=== PATIENT | male | born 1960 | race Caucasian/White ===

== ENCOUNTER 2017-03-10 12:15 | Inpatient (IN) | payer OTHER ==
--- NOTE | 2017-03-10 12:43 | Emergency Department Report ---
Chief Complaint: Neuro Symptoms/Deficit Stated Complaint: stroke like sysmptoms Time Seen by Provider: 03/10/17 12:35 - HPI History of Present Illness: Patient here with his family and reports that they noticed yesterday in the morning that he was drooling. Patient and brought to the emergency room today and family report right-sided droop into his face weakness in his right shoulder. Also reports patient right ear pain and dizziness. Pain to right ears for her to 10. Patient does not have any history except for history of TB in the past which he was treated for. He is also complaining of numbness to his right cheek. Denies any headache, or nausea or vomiting. Denies any fever or chills. Denies any neck pain or stiffness. - ROS Review of Systems: All systems are negative unless stated in HPI above - Exam Vital Signs: Vital Signs 03/10/17 12:26 Temperature 95 F L Pulse Rate 95 H Respiratory 16 Rate Blood Pressure 137/98 O2 Sat by Pulse 97 Oximetry Physical Exam: Gen.: This is a 56-year-old male well-nourished well-developed. Cardiovascular: S1, S2. Regular rate rhythm. Blood pressure is 137/98 Mini- neurological: Patient with right-sided droop in a face, he is able to ambulate without any difficulties. GCS of 15 and alert and oriented 3. MSE screening note: Focused history and physical exam performed. Due to findings the following was ordered: ED Medical Decision Making - Medical Decision Making MDM: Patient screened by provider in triage area. Appropriate protocol initiated and patient to be seen in main ED by ED Disposition for MSE Condition: Stable
[2017-03-10 13:13] LABS: Basophils % (Auto) 0.5 % (0.0-1.8); Eosinophils % (Auto) 2.9 % (0.0-4.3); Hemoglobin 14.8 gm/dl (11.8-15.2); Mean Corpuscular HGB Conc 33 % (32-34); Mean Corpuscular Hemoglobin 31 pg (28-32); Mean Corpuscular Volume 93 fl (84-94); Platelet Count 168 K/mm3 (140-440); Red Blood Count 4.85 M/mm3 (3.65-5.03); Red Cell Distribution Width 13.5 % (13.2-15.2); White Blood Count 4.1 K/mm3 (4.5-11.0)
[2017-03-10 13:22] LABS: INR 0.93 (0.87-1.13)
[2017-03-10 13:23] LABS: Partial Thromboplastin Time 33.3 Sec. (24.2-36.6)
--- NOTE | 2017-03-10 13:24 | Emergency Department Report ---
ED Neuro Deficit HPI - General Chief Complaint: Neuro Symptoms/Deficit Stated Complaint: stroke like sysmptoms Time Seen by Provider: 03/10/17 12:40 Source: patient Mode of arrival: Ambulatory Limitations: No Limitations - History of Present Illness Initial Comments: 56-year-old male that started having a headache and right ear pain yesterday. Son noticed that he had a facial droop on the right side. Patient also complained of some weakness and dizziness. Denies fevers chills nausea vomiting. No history of strep in the past. -: Sudden Location: right face Presenting Symptoms: Present: Facial Droop/Numbness. Absent: Altered Mental Status Place: home Severity: mild Quality: weak Improves With: none Worsens With: none Associated Symptoms: other (dizziness). denies: confusion, chest pain, cough, diaphoresis, fever/chills, headaches, loss of appetite, malise, nausea/vomiting , vertigo - Related Data Home Medications: Home Medications Medication Instructions Recorded Confirmed Last Taken No Known Home Medications [No 04/23/13 04/23/13 Unknown Reported Home Medications] Allergies/Adverse Reactions: Allergies Allergy/AdvReac Type Severity Reaction Status Date / Time No Known Allergies Allergy Unverified 04/23/13 12:42 ED Review of Systems ROS: Stated complaint: stroke like sysmptoms Other details as noted in HPI Comment: All other systems reviewed and negative Eyes: denies: eye pain, eye discharge, vision change ENT: denies: ear pain, throat pain Respiratory: denies: cough, shortness of breath, wheezing Cardiovascular: denies: chest pain, palpitations Endocrine: no symptoms reported Gastrointestinal: denies: abdominal pain, nausea, diarrhea Genitourinary: denies: urgency, dysuria Musculoskeletal: denies: back pain, joint swelling, arthralgia Skin: denies: rash, lesions Neurological: denies: headache, weakness, paresthesias Psychiatric: denies: anxiety, depression Hematological/Lymphatic: denies: easy bleeding, easy bruising ED Past Medical Hx - Past Medical History Hx Tuberculosis: (POSSIBLE TB NOW) - Surgical History Additional Surgical History: bowel surgery 2007 - Family History Family history: no significant - Social History Smoking Status: Current Every Day Smoker Substance Use Type: None - Medications Home Medications: Home Medications Medication Instructions Recorded Confirmed Last Taken Type No Known Home Medications [No 04/23/13 04/23/13 Unknown History Reported Home Medications] ED Neuro Physical Exam - General Limitations: No Limitations General appearance: alert, in no apparent distress Suspected Stroke: No - Head Head exam: Present: atraumatic, normocephalic - Eye Eye exam: Present: normal appearance, other (slow blinking on right) - ENT ENT exam: Present: mucous membranes moist - Neck Neck exam: Present: normal inspection - Respiratory Respiratory exam: Present: normal lung sounds bilaterally. Absent: respiratory distress - Cardiovascular Cardiovascular Exam: Present: regular rate, normal rhythm. Absent: systolic murmur, diastolic murmur, rubs, gallop - GI/Abdominal GI/Abdominal exam: Present: soft, normal bowel sounds. Absent: distended, tenderness - Rectal Rectal exam: Present: deferred - Extremities Exam Extremities exam: Present: normal inspection - Back Exam Back exam: Present: normal inspection - Neurological Exam Neurological exam: Present: alert, oriented X3, CN II-XII intact (minor facial droop on the right), normal gait. Absent: motor sensory deficit - NIHSS Assessment Interval: Baseline 1a. Level of Consciousness: alert 1b. LOC Questions: answers correctly 1c. LOC Commands: performs tasks correctly 2. Best Gaze: normal 3. Visual: no visual loss 4. Facial Palsy: minor paralysis 5b. Motor Arm Right: no drift 5a. Motor Arm Left: no drift 6a. Motor Leg Left: no drift 6b. Motor Leg Right: no drift 7. Limb Ataxia: absent 8. Sensory: normal 9. Best Language: no aphasia 10. Dysarthria: normal 11. Extinction/Inattention: no abnormality Total Score: 1 Stroke Severity: Minor Stroke - Psychiatric Psychiatric exam: Present: normal affect, normal mood - Skin Skin exam: Present: warm, dry, intact, normal color. Absent: rash ED Course Vital Signs 03/10/17 12:26 Temperature 95 F L Pulse Rate 95 H Respiratory 16 Rate Blood Pressure 137/98 O2 Sat by Pulse 97 Oximetry - Lab Data Result diagrams: 03/10/17 12:41 03/10/17 12:41 Lab Results 03/10/17 03/10/17 03/10/17 Range/Units 12:41 12:41 12:41 WBC 4.1 L (4.5-11.0) K/mm3 RBC 4.85 (3.65-5.03) M/mm3 Hgb 14.8 (11.8-15.2) gm/dl Hct 45.0 (35.5-45.6) % MCV 93 (84-94) fl MCH 31 (28-32) pg MCHC 33 (32-34) % RDW 13.5 (13.2-15.2) % Plt Count 168 (140-440) K/mm3 Lymph % (Auto) 44.3 H (13.4-35.0) % [place] % (Auto) 4.0 (0.0-7.3) % Eos % (Auto) 2.9 (0.0-4.3) % Baso % (Auto) 0.5 (0.0-1.8) % Lymph # 1.8 (1.2-5.4) K/mm3 [place] # 0.2 (0.0-0.8) K/mm3 Eos # 0.1 (0.0-0.4) K/mm3 Baso # 0.0 (0.0-0.1) K/mm3 Seg Neutrophils % 48.3 (40.0-70.0) % Seg Neutrophils # 2.0 (1.8-7.7) K/mm3 PT 12.9 (12.2-14.9) Sec. INR 0.93 (0.87-1.13) APTT 33.3 (24.2-36.6) Sec. Thrombin Time (15.1-19.6) Sec. Sodium 142 (137-145) mmol/L Potassium 3.9 (3.6-5.0) mmol/L Chloride 101.8 (98-107) mmol/L Carbon Dioxide 27 (22-30) mmol/L Anion Gap 17 mmol/L BUN 10 (9-20) mg/dL Creatinine 0.6 L (0.8-1.5) mg/dL Estimated GFR > 60 ml/min BUN/Creatinine Ratio 17 % Glucose 107 H (75-100) mg/dL Calcium 9.0 (8.4-10.2) mg/dL Troponin T < 0.010 (0.00-0.029) ng/mL 03/10/17 Range/Units 12:41 WBC (4.5-11.0) K/mm3 RBC (3.65-5.03) M/mm3 Hgb (11.8-15.2) gm/dl Hct (35.5-45.6) % MCV (84-94) fl MCH (28-32) pg MCHC (32-34) % RDW (13.2-15.2) % Plt Count (140-440) K/mm3 Lymph % (Auto) (13.4-35.0) % [place] % (Auto) (0.0-7.3) % Eos % (Auto) (0.0-4.3) % Baso % (Auto) (0.0-1.8) % Lymph # (1.2-5.4) K/mm3 [place] # (0.0-0.8) K/mm3 Eos # (0.0-0.4) K/mm3 Baso # (0.0-0.1) K/mm3 Seg Neutrophils % (40.0-70.0) % Seg Neutrophils # (1.8-7.7) K/mm3 PT (12.2-14.9) Sec. INR (0.87-1.13) APTT (24.2-36.6) Sec. Thrombin Time 16.5 (15.1-19.6) Sec. Sodium (137-145) mmol/L Potassium (3.6-5.0) mmol/L Chloride (98-107) mmol/L Carbon Dioxide (22-30) mmol/L Anion Gap mmol/L BUN (9-20) mg/dL Creatinine (0.8-1.5) mg/dL Estimated GFR ml/min BUN/Creatinine Ratio % Glucose (75-100) mg/dL Calcium (8.4-10.2) mg/dL Troponin T (0.00-0.029) ng/mL - Medical Decision Making 56-year-old male who presents here with right-sided facial droop since yesterday. He also some right ear pain and dizziness. He denies fevers chills nausea vomiting. States he has had some weakness on the right side. 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 Plan to treat with Valtrex and prednisone but will obtain CT and MRI. Head CT negative. Plan admit patient for further workup with MRI. Portions of this chart were dictated with dictation software. There may be dictation errors contained within this note. - Thrombolytic Inclusion/Exclusion Thrombolytic Exclusion Criteria: Symptom Onset > 3 Hours Critical care attestation.: If time is entered above; I have spent that time in minutes in the direct care of this critically ill patient, excluding procedure time. ED Disposition Clinical Impression: Facial droop, Headache Disposition: OP ADMIT IP TO THIS HOSP Is pt being admited?: Yes Condition: Stable
[2017-03-10 13:29] LABS: Anion Gap 17 mmol/L; BUN/Creatinine Ratio 17; Blood Urea Nitrogen 10 mg/dL (9-20); Carbon Dioxide 27 mmol/L (22-30); Chloride 101.8 mmol/L (98-107); Glucose 107 mg/dL (75-100); Potassium 3.9 mmol/L (3.6-5.0); Sodium 142 mmol/L (137-145)
--- NOTE | 2017-03-10 13:54 | Cat Scan Report ---
CT HEAD WITHOUT CONTRAST: HISTORY: Facial droop, right sided weakness. Serial contiguous axial images were obtained through the cranium. Intravenous contrast material was not administered. The ventricles are normal in size and appearance. There is no mass effect or midline shift. No areas of abnormally increased or decreased attenuation are seen. No mass lesion is seen. There is partial opacification and hyperostosis of the right mastoid air cells. The left mastoid air cells and visualized portions of the sinuses are normal. IMPRESSION: No acute intracranial process.
[2017-03-10] MEDS ORDERED: DELTASONE PO ONE (14:54)
[2017-03-10] MEDS ORDERED: VALTREX PO ONE (15:54)
--- NOTE | 2017-03-10 16:23 | History and Physical Report ---
History of Present Illness Date of examination: 03/10/17 Date of admission: 03/10/17 14:56 Chief complaint: CC:Rt Facial droop 1 Day History of present illness: History of Present Illness 56-year-old male that started having a headache and right ear pain yesterday. Son noticed that he had a facial droop on the right side. Patient also complained of some weakness and dizziness. Denies fevers chills nausea vomiting. No history of strep in the past.No exacerbating factors and relieving factors. No significant PMH - Past Medical History Hx Tuberculosis: (POSSIBLE TB in past) - Surgical History Additional Surgical History: bowel surgery 2007 - Family History Family history: no significant - Social History Smoking Status: Current Every Day Smoker Substance Use Type: None - Medications Home Medications: Home Medications Medication Instructions Recorded Confirmed Last Taken Type No Known Home Medications [No 04/23/13 04/23/13 Unknown History Reported Home Medications] Review of Systems Stated complaint: stroke like sysmptoms Other details as noted in HPI Comment: All other systems reviewed and negative Eyes: denies: eye pain, eye discharge, vision change ENT: denies: ear pain, throat pain Respiratory: denies: cough, shortness of breath, wheezing Cardiovascular: denies: chest pain, palpitations Endocrine: no symptoms reported Gastrointestinal: denies: abdominal pain, nausea, diarrhea Genitourinary: denies: urgency, dysuria Musculoskeletal: denies: back pain, joint swelling, arthralgia Skin: denies: rash, lesions Neurological: denies: headache, weakness, paresthesias Psychiatric: denies: anxiety, depression Hematological/Lymphatic: denies: easy bleeding, easy bruising Medications and Allergies Allergies Allergy/AdvReac Type Severity Reaction Status Date / Time No Known Allergies Allergy Unverified 04/23/13 12:42 Home Medications Medication Instructions Recorded Confirmed Last Taken Type No Known Home Medications [No 04/23/13 03/10/17 Unknown History Reported Home Medications] Review of Systems All systems: negative Exam - Constitutional Vitals: Temp Pulse Resp BP Pulse Ox 95 F L 79 19 135/95 99 03/10/17 12:26 03/10/17 15:30 03/10/17 15:30 03/10/17 15:30 03/10/17 15:30 General appearance: Present: no acute distress, well-nourished - EENT Eyes: Present: PERRL ENT: hearing intact, clear oral mucosa - Neck Neck: Present: supple, normal ROM - Respiratory Respiratory effort: normal Respiratory: bilateral: CTA - Cardiovascular Heart rate: 78 Rhythm: regular Heart Sounds: Present: S1 & S2. Absent: rub, click - Extremities Extremities: no ischemia, pulses intact, pulses symmetrical, No edema Peripheral Pulses: within normal limits - Abdominal General gastrointestinal: Present: soft, non-tender, non-distended, normal bowel sounds Male genitourinary: Present: normal - Integumentary Integumentary: Present: clear, warm, dry - Musculoskeletal Musculoskeletal: gait normal, strength equal bilaterally - Psychiatric Psychiatric: appropriate mood/affect, intact judgment & insight, cooperative - Neurologic Neurologic: CNII-XII intact, focal deficits (Facial palsy including Forehead.), moves all extremities, gait normal, other (Rt UE and LE 5/5 in both upper and lower extremity Reflexes normal) Results - Labs CBC & Chem 7: 03/10/17 12:41 03/10/17 12:41 Labs: Laboratory Last Values WBC 4.1 K/mm3 (4.5-11.0) L 03/10/17 12:41 RBC 4.85 M/mm3 (3.65-5.03) 03/10/17 12:41 Hgb 14.8 gm/dl (11.8-15.2) 03/10/17 12:41 Hct 45.0 % (35.5-45.6) 03/10/17 12:41 MCV 93 fl (84-94) 03/10/17 12:41 MCH 31 pg (28-32) 03/10/17 12:41 MCHC 33 % (32-34) 03/10/17 12:41 RDW 13.5 % (13.2-15.2) 03/10/17 12:41 Plt Count 168 K/mm3 (140-440) 03/10/17 12:41 Lymph % (Auto) 44.3 % (13.4-35.0) H 03/10/17 12:41 [place] % (Auto) 4.0 % (0.0-7.3) 03/10/17 12:41 Eos % (Auto) 2.9 % (0.0-4.3) 03/10/17 12:41 Baso % (Auto) 0.5 % (0.0-1.8) 03/10/17 12:41 Lymph # 1.8 K/mm3 (1.2-5.4) 03/10/17 12:41 [place] # 0.2 K/mm3 (0.0-0.8) 03/10/17 12:41 Eos # 0.1 K/mm3 (0.0-0.4) 03/10/17 12:41 Baso # 0.0 K/mm3 (0.0-0.1) 03/10/17 12:41 Seg Neutrophils % 48.3 % (40.0-70.0) 03/10/17 12:41 Seg Neutrophils # 2.0 K/mm3 (1.8-7.7) 03/10/17 12:41 PT 12.9 Sec. (12.2-14.9) 03/10/17 12:41 INR 0.93 (0.87-1.13) 03/10/17 12:41 APTT 33.3 Sec. (24.2-36.6) 03/10/17 12:41 Thrombin Time 16.5 Sec. (15.1-19.6) 03/10/17 12:41 Sodium 142 mmol/L (137-145) 03/10/17 12:41 Potassium 3.9 mmol/L (3.6-5.0) 03/10/17 12:41 Chloride 101.8 mmol/L (98-107) 03/10/17 12:41 Carbon Dioxide 27 mmol/L (22-30) 03/10/17 12:41 Anion Gap 17 mmol/L 03/10/17 12:41 BUN 10 mg/dL (9-20) 03/10/17 12:41 Creatinine 0.6 mg/dL (0.8-1.5) L 03/10/17 12:41 Estimated GFR > 60 ml/min 03/10/17 12:41 BUN/Creatinine Ratio 17 % 03/10/17 12:41 Glucose 107 mg/dL (75-100) H 03/10/17 12:41 Calcium 9.0 mg/dL (8.4-10.2) 03/10/17 12:41 Troponin T < 0.010 ng/mL (0.00-0.029) 03/10/17 12:41 - Imaging and Cardiology EKG: report reviewed (NSr 89) CT Scan - head: report reviewed (NAF) Assessment and Plan Advance Directives: Yes (full code) VTE prophylaxis?: Chemical Plan of care discussed with patient/family: Yes - Patient Problems (1) Acute CVA (cerebrovascular accident) Current Visit: Yes Status: Acute Plan to address problem: Has rt total facial palsy -hence w/u for acute CVA.Rt forehead unable to wrinkle which is not c/w Fraga's Palsy.W/u for CVA initiated in the form of MRI MRA CDS and ECHO. Also started on Prednisone 2 mg po qd for possible Fraga's palsy. (2) DVT prophylaxis Current Visit: Yes Status: Acute Plan to address problem: On Lovenox
[2017-03-10] MEDS ORDERED: DULCOLAX PR PRN (16:24)
[2017-03-10] MEDS ORDERED: MORPHINE IV PRN (16:24)
[2017-03-10] MEDS ORDERED: ZOFRAN IV PRN (16:24)
[2017-03-10] MEDS ORDERED: PERCOCET 5/325 PO PRN (16:24)
[2017-03-10] MEDS ORDERED: TYLENOL PO PRN (16:24)
[2017-03-10] MEDS ORDERED: AMBIEN PO PRN (16:24)
[2017-03-10] MEDS ORDERED: MILK OF MAGNESIA PO PRN (16:24)
[2017-03-10] MEDS ORDERED: SODIUM CHLORIDE FLUSH SYRINGE 10 ML IV PRN (16:25)
[2017-03-10] MEDS ORDERED: D5NS 1,000 ML IV SCH (17:00)
[2017-03-10] MEDS: DELTASONE PO SCH (18:40)
[2017-03-10] MEDS: PEPCID PO SCH (21:18)
[2017-03-10] MEDS: ZOCOR PO SCH (21:19)
[2017-03-10] MEDS ORDERED: ZOCOR PO SCH (22:00)
[2017-03-11 08:11] LABS: Basophils % (Auto) 0.2 % (0.0-1.8); Eosinophils % (Auto) 0.1 % (0.0-4.3); Hematocrit 42.8 % (35.5-45.6); Hemoglobin 15.2 gm/dl (11.8-15.2); Mean Corpuscular HGB Conc 36 % (32-34); Mean Corpuscular Hemoglobin 32 pg (28-32); Mean Corpuscular Volume 91 fl (84-94); Platelet Count 159 K/mm3 (140-440); Red Blood Count 4.71 M/mm3 (3.65-5.03); Red Cell Distribution Width 13.6 % (13.2-15.2); White Blood Count 7.4 K/mm3 (4.5-11.0)
[2017-03-11 08:29] LABS: Alanine Aminotransferase 23 units/L (7-56); Albumin 4.6 g/dL (3.9-5); Albumin/Globulin Ratio 1.6 %; Alkaline Phosphatase 66 units/L (35-129); BUN/Creatinine Ratio 26; Blood Urea Nitrogen 18 mg/dL (9-20); Calcium 9.3 mg/dL (8.4-10.2); Carbon Dioxide 26 mmol/L (22-30); Cholesterol 235 mg/dL (50-199); Glucose 141 mg/dL (75-100); HDL Cholesterol 49 mg/dL (40-59); LDL Cholesterol,Direct 162 mg/dL (50-130); Total Protein 7.5 g/dL (6.3-8.2); Triglycerides 120 mg/dL (2-149)
[2017-03-11 08:30] LABS: Anion Gap 17 mmol/L; Chloride 102.4 mmol/L (98-107); Potassium 4.3 mmol/L (3.6-5.0); Sodium 141 mmol/L (137-145)
[2017-03-11] MEDS ORDERED: HABITROL TD SCH (10:00)
[2017-03-11] MEDS ORDERED: ASPIRIN PO SCH (10:00)
[2017-03-11] MEDS: PEPCID PO SCH ×2 (12:07→21:33)
[2017-03-11] MEDS: DELTASONE PO SCH (12:07)
--- NOTE | 2017-03-11 12:13 | Magnetic Resonance Report ---
MRI BRAIN WITHOUT CONTRAST INDICATION: Stroke. COMPARISON: Yesterday's head CT. FINDINGS: Noncontrast multiplanar and multisequence MRI of the brain demonstrates normal ventricles and sulci without acute infarct, hemorrhage, mass effect or midline shift. Slight bilateral basal ganglia calcifications. No abnormal extra-axial masses or fluid collections. Normal major intracranial vascular flow voids. Normal posterior fossa structures with symmetric seventh and eighth nerve complexes. Symmetric, grossly unremarkable eye globes. Clear paranasal sinuses. Mastoids not pneumatized. Normal midline structures without evidence of Chiari malformation. CONCLUSION: No acute intracranial MRI abnormality, as described. Thank you for the opportunity to participate in this patient's care.
--- NOTE | 2017-03-11 12:33 | Magnetic Resonance Report ---
MRA HEAD WITHOUT CONTRAST INDICATION: Stroke. COMPARISON: None similar. FINDINGS: MRA of the head performed without intravenous contrast and demonstrates no evidence of flow-limiting stenosis, occlusion or vascular malformation. 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 Please note that detection of aneurysms less than 5 mm is limited on this exam. CONCLUSION: [place], as described. Thank you for the opportunity to participate in this patient's care.
--- NOTE | 2017-03-11 14:03 | Consultation ---
History of Present Illness - Reason for Consult Consult date: 03/11/17 stroke - History of Present Illness patient is seen and evaluated suspect Fraga's Palsy since CT/MRI/MRA are negative exam tends to support pure motor weakness right face only Medications and Allergies Allergies Allergy/AdvReac Type Severity Reaction Status Date / Time No Known Allergies Allergy Unverified 04/23/13 12:42 Home Medications Medication Instructions Recorded Confirmed Last Taken Type No Known Home Medications [No 04/23/13 03/10/17 Unknown History Reported Home Medications] Active Meds: Active Medications Acetaminophen (Tylenol) 650 mg PO Q4H PRN PRN Reason: Pain MILD(1-3)/Fever >100.5/YEAGER Aspirin (Aspirin) 325 mg PO QDAY [facility] Last Admin: 03/11/17 12:07 Dose: 325 mg Bisacodyl (Dulcolax) 10 mg [place] QDAY PRN PRN Reason: Constipation unrelieved by MOM Famotidine (Pepcid) 20 mg PO BID [facility] Last Admin: 03/11/17 12:07 Dose: 20 mg Magnesium Hydroxide (Milk Of Magnesia) 30 ml PO Q4H PRN PRN Reason: Constipation Morphine Sulfate (Morphine) 2 mg IV Q4H PRN PRN Reason: Pain, Moderate (4-6) Nicotine (Habitrol) 14 mg TD QDAY [facility] Last Admin: 03/11/17 12:07 Dose: 14 mg Ondansetron HCl (Zofran) 4 mg IV Q8H PRN PRN Reason: N/V unrelieved by Reglan Oxycodone/Acetaminophen (Percocet 5/325) 1 tab PO Q6H PRN PRN Reason: Pain, Moderate (4-6) Prednisone (Deltasone) 20 mg PO QDAY [facility] Last Admin: 03/11/17 12:07 Dose: 20 mg Simvastatin (Zocor) 20 mg PO QHS [facility] Last Admin: 03/10/17 21:19 Dose: 20 mg Sodium Chloride (Sodium Chloride Flush Syringe 10 Ml) 10 ml IV PRN PRN PRN Reason: LINE FLUSH Zolpidem Tartrate (Ambien) 5 mg PO QHS PRN PRN Reason: Insomnia Exam - Constitutional Vitals: Temp Pulse Resp BP Pulse Ox 98.1 F 83 16 125/87 98 03/11/17 04:05 03/11/17 08:55 03/11/17 04:05 03/11/17 08:55 03/11/17 08:55 Results - Labs CBC & Chem 7: 03/11/17 07:49 03/11/17 07:49 Labs: Abnormal lab results 03/11/17 03/11/17 03/11/17 Range/Units 07:49 07:49 07:49 MCHC 36 H (32-34) % Seg Neutrophils % 79.5 H (40.0-70.0) % Creatinine 0.7 L (0.8-1.5) mg/dL Glucose 141 H (75-100) mg/dL Hemoglobin A1c 6.1 H (4-6) % Cholesterol 235 H (50-199) mg/dL LDL Cholesterol Direct 162 H (50-130) mg/dL
[2017-03-11] MEDS: ZOCOR PO SCH (21:33)
--- NOTE | 2017-03-11 23:16 | Progress Note ---
Assessment and Plan - Patient Problems (1) Acute CVA (cerebrovascular accident) Status: Ruled-out Plan to address problem: Has rt total facial palsy -hence w/u for acute CVA.Rt forehead unable to wrinkle which is not c/w Fraga's Palsy.W/u for CVA initiated in the form of MRI MRA CDS and ECHO. Also started on Prednisone 2 mg po qd for possible Fraga's palsy. (2) DVT prophylaxis Status: Acute Plan to address problem: On Lovenox Subjective Date of service: 03/11/17 Principal diagnosis: Acute CVA Interval history: Same.No new weakness. Objective - Constitutional Vitals: Vital Signs - 12hr 03/11/17 03/11/17 03/11/17 14:01 14:02 14:03 Temperature 98.6 F Pulse Rate 104 H 103 H 101 H Respiratory 16 Rate Blood Pressure 150/89 134/86 134/86 Blood Pressure [Left] O2 Sat by Pulse 98 96 97 Oximetry 03/11/17 03/11/17 03/11/17 16:00 17:50 17:52 Temperature 98.3 F Pulse Rate 102 H 107 H 107 H Respiratory 18 Rate Blood Pressure 134/92 Blood Pressure 134/92 [Left] O2 Sat by Pulse 97 97 Oximetry 03/11/17 20:36 Temperature 98.7 F Pulse Rate 106 H Respiratory 20 Rate Blood Pressure 129/88 Blood Pressure [Left] O2 Sat by Pulse 92 Oximetry General appearance: Present: no acute distress, well-nourished - EENT Eyes: PERRL, EOM intact ENT: hearing intact, clear oral mucosa, other (Facial palsy--Rt) Ears: bilateral: normal - Neck Neck: supple, normal ROM - Respiratory Respiratory effort: normal Respiratory: bilateral: CTA - Breasts Breasts: normal - Cardiovascular Rhythm: regular Heart Sounds: Present: S1 & S2. Absent: gallop, rub Extremities: pulses intact, No edema, normal color, Full ROM - Gastrointestinal General gastrointestinal: Present: soft, non-tender, non-distended, normal bowel sounds - Genitourinary Male genitourinary: normal - Integumentary Integumentary: clear, warm, dry - Musculoskeletal Musculoskeletal: 1, strength equal bilaterally - Neurologic Neurologic: moves all extremities - Psychiatric Psychiatric: memory intact, appropriate mood/affect, intact judgment & insight - Labs CBC & Chem 7: 03/11/17 07:49 03/11/17 07:49 Labs: Abnormal lab results 03/11/17 03/11/17 03/11/17 Range/Units 07:49 07:49 07:49 MCHC 36 H (32-34) % Seg Neutrophils % 79.5 H (40.0-70.0) % Creatinine 0.7 L (0.8-1.5) mg/dL Glucose 141 H (75-100) mg/dL Hemoglobin A1c 6.1 H (4-6) % Cholesterol 235 H (50-199) mg/dL LDL Cholesterol Direct 162 H (50-130) mg/dL
[2017-03-12 09:16] VITALS: BP 137/91
--- NOTE | 2017-03-12 09:34 | Discharge Summary ---
Providers - Providers Date of Admission: 03/10/17 14:56 Date of discharge: 03/12/17 Attending physician: TOÑO BENJAMIN MD 03/10/17 16:24 Consult to Physician [CONS] Routine Consulting Provider: JEREMY IVERSON Reason For Exam: CVA Place consult to:: Dr. Iverson Notified:: Lena LANDIS Phone number called:: Was contact made?: Yes If yes, spoke with:: [facility] Time called:: 08:23 03/10/17 16:25 Occupational Therapy Evaluate and Treat [CONS] Routine Comment: Reason For Exam: Neuro deficits Physical Therapy Evaluation and Treat [CONS] Routine Comment: Reason For Exam: Neuro deficits 03/11/17 14:31 Speech Therapy Evaluation and Treat [CONS] Routine Reason For Exam: FACIAL DROOP/CVA W/U Primary care physician: [employer] Hospitalization Reason for admission: Fraga's palsy Condition: Stable Pertinent studies: CT, MRI, MRA head unremarkable Carotid Doppler less than 50% obstruction Echo normal findings Hospital course: History of Present Illness 56-year-old male that started having a headache and right ear pain yesterday. Son noticed that he had a facial droop on the right side. Patient also complained of some weakness and dizziness. Denies fevers chills nausea vomiting. No history of strep in the past.No exacerbating factors and relieving factors. No significant PMH. Patient was admitted to the floor and was worked up for stroke, tests were negative. Patient has right fascial droop and diagnosed with fascial palsy. Patient was given steroids 60 mg by mouth daily for 1 week, discharged to his home health. Patient didn't have any signs of infection so it is unlikely the patient has infectious cause of Fraga's palsy. Disposition: DC-01 TO HOME OR SELFCARE Time spent for discharge: 31 minutes - Discharge Diagnoses (1) Acute CVA (cerebrovascular accident) Status: Ruled-out (2) Facial droop Status: Acute (3) Fraga's palsy Status: Acute Core Measure Documentation - Palliative Care Palliative Care/ Comfort Measures: Not Applicable - Core Measures Any of the following diagnoses?: none Exam - Physical Exam Narrative exam: Not in cardiopulmonary distress. The patient appeared well nourished and normally developed. Vital signs as documented. Head exam is unremarkable. No scleral icterus . Neck is without jugular venous distension, thyromegaly, or carotid bruits. Lungs are clear to auscultation. Cardiac exam reveals regular rate and Rhythm. First and second heart sounds normal. No murmurs, rubs or gallops. Abdominal exam reveals normal bowel sounds, no masses, no organomegaly and no aortic enlargement. Extremities are nonedematous and both femoral and pedal pulses are normal. RN TRIAGE:Right fascial palsy. - Constitutional Vitals: Temp Pulse Resp BP Pulse Ox 97.6 F 85 18 137/91 97 03/12/17 09:05 03/12/17 09:04 03/12/17 09:05 03/12/17 09:04 03/12/17 09:05 Plan Activity: no restrictions Weight Bearing Status: Full Weight Bearing Diet: low cholesterol Follow up with: PRIMARY CARE, [Primary Care Provider] - 3-5 Days Forms: Work/School Release Form Prescriptions: oxyCODONE /ACETAMINOPHEN [Percocet 5/325 mg] 1 tab PO Q6H PRN #12 tablet PRN Reason: Pain, Moderate (4-6) predniSONE [Deltasone] 60 mg PO QDAY #21 tablet
== END 2017-03-12 11:57 | disposition home or self-care (01) | DRG 74 ==
LOC: ED 12:15 → 4A 14:56
PROVIDERS: ADMIT Internal Medicine; ATTEND Internal Medicine
DX: G51.0 Bell's palsy (principal); R51 Headache; F17.210 Nicotine dependence, cigarettes, uncomplicated; Z86.11 Personal history of tuberculosis
CPT/HCPCS: 36415; 70450; 70544; 70551; 80048; 80053; 80061; 83036; 84484; 85025; 85610; 85670; 85730; 93005; 93010; 93306; 93880; 99406; J7512